=== PATIENT | male | born 1950 | race Two or more races ===

== ENCOUNTER 2023-01-09 07:41 | Outpatient (CLI) | payer OTHER | END 2023-01-09 07:49 | disposition home or self-care (01) | LOC: TOM 07:41 | PROVIDERS: ATTEND Internal Medicine Gastroenterology | DX: K56.609 Unspecified intestinal obstruction, unspecified as to partial versus complete obstruction (principal); R10.84 Generalized abdominal pain; Z12.11 Encounter for screening for malignant neoplasm of colon ==